=== PATIENT | male | born 1960 | race Caucasian/White ===

== ENCOUNTER 2018-07-03 07:01 | Day surgery (SDC) | payer BC ==
[~2018-07-03 07:01] MED LIST: CYCLOPENTOLATE 1% 2 ML OPH OPER; LACTATED RINGER'S 1,000 ML IV*
[2018-07-03] MEDS: DICLOFENAC 0.1% 2.5 ML OPH OPER (08:10)
[2018-07-03] MEDS: SOD CHLORIDE 0.9% 1,000 ML IV (08:10)
[2018-07-03] MEDS: MOXIFLOXACIN 0.5% 3 ML OPH OPER (08:11)
[2018-07-03] MEDS: PHENYLephrine 2.5% 15 ML OPH OPER (08:11)
[2018-07-03] MEDS: TROPICAMIDE 1% 3 ML OPH OPER (08:12)
[2018-07-03] MEDS ORDERED: TOBRAMYCIN/DEXAMETH 3.5 GM OPH OINT (09:00)
[2018-07-03] MEDS ORDERED: TETRACAINE 0.5% 4 ML OPH (09:00)
[2018-07-03] MEDS ORDERED: LIDOCAINE 1% (MPF) 10 ML INJ (09:00)
[2018-07-03] MEDS ORDERED: EPINEPHrine 1 MG INJ (09:00)
[2018-07-03] MEDS: TETRACAINE 0.5% 4 ML OPH LEFT EYE (09:15)
[2018-07-03] MEDS: LIDOCAINE 1% (MPF) 10 ML INJ INJ (09:15)
[2018-07-03] MEDS ORDERED: MIDAZOLAM 1 MG/ML 2 ML INJ (09:17)
[2018-07-03] MEDS ORDERED: FENTAnyl 50 MCG/ML VIAL (09:17)
[2018-07-03] MEDS ORDERED: ONDANSETRON 4 MG INJ IV (09:30)
[2018-07-03] MEDS ORDERED: DIPHENHYDRAMINE 50 MG INJ IV (09:30)
[2018-07-03] MEDS ORDERED: LABETALOL HCL 20MG INJ IV (09:30)
[2018-07-03] MEDS ORDERED: hydrALAzine 20 MG INJ IV (09:30)
[2018-07-03] MEDS ORDERED: MEPERIDINE 25 MG INJ IV (09:30)
[2018-07-03] MEDS ORDERED: OXYCODONE/ACETAMINOPHEN (5/325) TAB PO (09:30)
[2018-07-03] MEDS ORDERED: HYDROmorphONE 1 MG/5 ML IV SYRINGE IV (09:30)
[2018-07-03] MEDS ORDERED: FENTAnyl 50 MCG/ML VIAL IV (09:30)
[2018-07-03] MEDS: TOBRAMYCIN/DEXAMETH 3.5 GM OPH OINT LEFT EYE (10:00)
== END 2018-07-03 11:25 | disposition home or self-care (01) ==
LOC: SDS 07:01
DX: E11.36 Type 2 diabetes mellitus with diabetic cataract (principal); H25.12 Age-related nuclear cataract, left eye; E11.42 Type 2 diabetes mellitus with diabetic polyneuropathy; I10 Essential (primary) hypertension; H25.89 Other age-related cataract; F17.200 Nicotine dependence, unspecified, uncomplicated; I11.0 Hypertensive heart disease with heart failure; I50.9 Heart failure, unspecified; E11.21 Type 2 diabetes mellitus with diabetic nephropathy; J44.0 Chronic obstructive pulmonary disease with (acute) lower respiratory infection; E55.9 Vitamin D deficiency, unspecified
CPT/HCPCS: 66984; 82962